=== PATIENT | female | born 1985 | race African-American/Black ===

== ENCOUNTER 2019-01-02 04:59 | Emergency (ER) | payer MEDICAID ==
[~2019-01-02] VITALS: Ht 162.6 cm; Wt 80.0 kg
[2019-01-02] MEDS ORDERED: KETOROLAC 30MG/ML VIAL IV STA (06:30)
[2019-01-02] MEDS ORDERED: ONDANSETRON HCL 4MG/2ML INJ IV STA (06:30)
[2019-01-02] MEDS ORDERED: SODIUM CHLORIDE 0.9% 1,000 ML IV ONE (06:30)
[2019-01-02 06:53] LABS: BASOPHILS % 0.2 % (0.0-2.0); CHLORIDE 109 mEq/L (98-107); EOSINOPHILS % 1.3 % (0.0-5.0); HEMATOCRIT. 38.9 % (36.0-48.0); HEMOGLOBIN. 13.1 g/dL (12.0-16.0); LYMPHOCYTES % 17.8 % (20.0-50.0); MEAN CORPUSCULAR HEMOGLOBIN 30.2 pg (28.0-32.0); MEAN CORPUSCULAR VOLUME 89.5 fL (81.0-99.0); MEAN PLATELET VOLUME 8.5 fl (7.4-10.4); MONOCYTES % 3.1 % (2.0-8.0); NEUTROPHILS % 77.6 % (40.0-76.0); PLATELET 209 x1000/uL (130-400); RED BLOOD CELL COUNT 4.34 mill/uL (4.2-5.4); RED CELL DISTRIBUTION WIDTH 13.3 % (11.6-14.6)
[2019-01-02 07:10] LABS: HCG SCREEN NEGATIVE
[2019-01-02 07:54] VITALS: BP 103/57
== END 2019-01-02 07:58 | disposition home or self-care (01) ==
LOC: ER 05:21
DX: R51 Headache (principal); R20.0 Anesthesia of skin; F12.10 Cannabis abuse, uncomplicated; F17.200 Nicotine dependence, unspecified, uncomplicated; Z86.73 Personal history of transient ischemic attack (TIA), and cerebral infarction without residual deficits; Z85.841 Personal history of malignant neoplasm of brain
CPT/HCPCS: 36415; 70450; 80053; 81025; 84703; 85025; 96361; 96374; 96375; 99284; J1885; J2405; J7030

== ENCOUNTER 2023-08-27 10:23 | Emergency (ER) | payer MEDICAID ==
[~2023-08-27] VITALS: Ht 167.6 cm; Wt 75.0 kg
[2023-08-27 10:29] VITALS: O2SAT 99
[2023-08-27] MEDS ORDERED: AMOX-494 MT (11:49)
[2023-08-27 12:06] VITALS: BP 135/87; PULSE 76; RESP 18; TEMP 98.3
== END 2023-08-27 12:07 | disposition home or self-care (01) ==
LOC: ER 10:23
DX: K04.7 Periapical abscess without sinus (principal); F12.10 Cannabis abuse, uncomplicated
CPT/HCPCS: 81025; 99283